=== PATIENT | female | born 1960 | race Caucasian/White ===

== ENCOUNTER → 2023-07-17 16:50 | Outpatient (REF) | payer MEDICARE, OTHER, SELFPAY | LOC: RAD 16:50 | PROVIDERS: ATTENDING PHYSICIAN Physician Assistant; REFERRING PHYSICIAN Student in an Organized Health Care Education/Training Program | DX: J10.1 Influenza due to other identified influenza virus with other respiratory manifestations (principal); R68.83 Chills (without fever); R06.1 Stridor; R53.83 Other fatigue; Z85.3 Personal history of malignant neoplasm of breast | CPT/HCPCS: 71046 ==

== ENCOUNTER → 2024-04-13 11:40 | Outpatient (REF) | payer MEDICARE, OTHER, SELFPAY | LOC: HWRAD 11:40 | PROVIDERS: ATTENDING PHYSICIAN Internal Medicine Cardiovascular Disease; FAMILY PHYSICIAN Student in an Organized Health Care Education/Training Program | DX: E78.00 Pure hypercholesterolemia, unspecified (principal); M25.571 Pain in right ankle and joints of right foot; M79.644 Pain in right finger(s) | CPT/HCPCS: 73130; 73610; 75571 ==

== ENCOUNTER → 2024-10-12 11:21 | Outpatient (REF) | payer MEDICARE, OTHER, SELFPAY | LOC: RAD 11:21 | PROVIDERS: ATTENDING PHYSICIAN Nurse Practitioner Family; FAMILY PHYSICIAN Student in an Organized Health Care Education/Training Program | DX: M81.0 Age-related osteoporosis without current pathological fracture (principal) | CPT/HCPCS: 77080 ==

== ENCOUNTER → 2024-11-09 14:40 | Outpatient (REF) | payer MEDICARE, OTHER, SELFPAY | LOC: DHSLP 14:40 | PROVIDERS: ATTENDING PHYSICIAN Internal Medicine Critical Care Medicine; FAMILY PHYSICIAN Student in an Organized Health Care Education/Training Program | DX: G47.33 Obstructive sleep apnea (adult) (pediatric) (principal) | CPT/HCPCS: 95800 ==